=== PATIENT | female | born 1960 | race Caucasian/White ===

== ENCOUNTER 2023-05-08 08:21 | Emergency (ER) | payer OTHER, MEDICAID ==
[2023-05-08] MEDS ORDERED: Ibuprofen 800 MG TAB ONE (08:50)
== END 2023-05-08 09:32 | disposition home or self-care (01) ==
LOC: NAV ERS 08:21
DX: S20.20XA Contusion of thorax, unspecified, initial encounter (principal); M25.532 Pain in left wrist; I25.10 Atherosclerotic heart disease of native coronary artery without angina pectoris; I11.0 Hypertensive heart disease with heart failure; I50.9 Heart failure, unspecified; E11.42 Type 2 diabetes mellitus with diabetic polyneuropathy; J44.9 Chronic obstructive pulmonary disease, unspecified; F17.210 Nicotine dependence, cigarettes, uncomplicated; W19.XXXA Unspecified fall, initial encounter; Y92.009 Unspecified place in unspecified non-institutional (private) residence as the place of occurrence of the external cause; Z79.82 Long term (current) use of aspirin; Z79.84 Long term (current) use of oral hypoglycemic drugs